=== PATIENT | male | born 1935 | race Caucasian/White ===

== ENCOUNTER 2020-06-18 08:36 | Day surgery (SDC) | payer MEDICARE ==
[~2020-06-18] VITALS: Ht 185.4 cm; Wt 90.9 kg
[~2020-06-18 08:36] MED LIST: AMLO5 PO; ATOR10 PO; ATOR20 PO; Aspir-Trin325 MG PO; CARV25 PO; CARV3.125 PO; HYDR1TAB94 PO; NITR.4SL SL; OLME20 PO; OLME5TAB PO; TORSE20 PO
[2020-06-18] MEDS ORDERED: ASPI81CH PO (09:50)
--- NOTE | 2020-06-18 10:51 | NUR ---
PT AWAKE POST DEXTER, DR. DARBY AT BEDSIDE TO DISCUSS RESULTS OF PROCEDURE. PT TOLERATES PO FLUIDS WITH NO DIFFICULTIES. PT VERBALIZING UNDERSTANDING OF PLAN OF CARE. VSS.
--- NOTE | 2020-06-18 11:17 | NUR ---
PT VERBALIZED UNDERSTANDING OF D/C INSTRUCTIONS, PAPERWORK PROVIDED IN FOLDER. RIDE CALLED, STATES THAT SHE IS OUT IN PARKING LOT. IV REMOVED FROM RAC WITH CATH INTACT, PRESSURE DRESSING APPLIED. PT AMBULATES WITH STEADY GAIT, ABLE TO DRESS SELF WITH NO NEEDED ASSISTANCE. VSS. ENCOURAGE TO CALL PROVIDER WITH QUESTIONS/CONCERNS. NO ACUTE DISTRESS NOTED AT TIME OF DISCHARGE.
== END 2020-06-18 22:44 | disposition home or self-care (01) ==
LOC: MHTC 08:36
DX: Z09 Encounter for follow-up examination after completed treatment for conditions other than malignant neoplasm (principal); I11.0 Hypertensive heart disease with heart failure; I50.9 Heart failure, unspecified; E78.00 Pure hypercholesterolemia, unspecified; I25.10 Atherosclerotic heart disease of native coronary artery without angina pectoris; I25.2 Old myocardial infarction; Z95.5 Presence of coronary angioplasty implant and graft; Z95.2 Presence of prosthetic heart valve; I70.0 Atherosclerosis of aorta; Z95.810 Presence of automatic (implantable) cardiac defibrillator; Z88.7 Allergy status to serum and vaccine; Z86.79 Personal history of other diseases of the circulatory system; Z79.82 Long term (current) use of aspirin; E78.5 Hyperlipidemia, unspecified; I25.5 Ischemic cardiomyopathy; Z79.899 Other long term (current) drug therapy; Z87.891 Personal history of nicotine dependence; I65.29 Occlusion and stenosis of unspecified carotid artery; Z98.890 Other specified postprocedural states
CPT/HCPCS: 93312; 93325; J2704; J7030